=== PATIENT | male | born 1945 | race Caucasian/White ===

== ENCOUNTER 2022-04-22 11:51 | Observation (INO) | payer MEDICARE ==
[2022-04-22 12:29] LABS: Absolute Neutrophil Ct (ANC) 2.65 x10^3/uL (1.4-6.9); BASOPHIL % 1.1 % (0.0-0.4); Basophil (Absolute #) 0.05 x10^3/uL (0-0.4); Eosinophil % 2.9 % (0.00-5.0); Eosinophil (Absolute #) 0.13 x10^3/uL (0-0.5); Hematocrit 40.1 % (42-50); IMMATURE GRAN # 0.01 x10^3u/L (0.00-0.03); IMMATURE GRAN % 0.2 % (0.00-0.4); Lymphocyte (Absolute #) 1.09 x10^3/uL (1.0-4.6); Lymphocytes % 24.4 % (24.0-44.0); Mean Cell Volume 93.5 fL (78-100); Mean Corpuscular Hemoglobin 30.3 pg (26-32); Mean Corpuscular Hgb Concent. 32.4 g/dL (32-36); Mean Platelet Volume 10.7 fL (7.5-11.0); Monocyte (Absolute #) 0.53 x10^3/uL (0.0-1.3); Monocytes % 11.9 % (0.0-12.0); Neutrophil % 59.5 % (36.0-66.0); Platelet Count 188 x10^3/uL (150-450); Red Blood Count 4.29 x10^6/uL (4.1-5.6); Red Cell Distribution Width 13.9 % (11.5-14.0); White Blood Count 4.5 x10^3/uL (4.0-10.5)
--- NOTE | 2022-04-22 12:41 | ERPHSYRPT ---
- History of Present Illness Source: patient, other () Exam Limitations: other (Both poor historians) Patient Subjective Stated Complaint: pt here for increase confusion today that started at about 1100 at [employer], states he ate a peice of paper. pt has hx of dementia. Triage Nursing Assessment: pt alert,pt oriented to person,place and time . resp easy. skin w/d/p. 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 Pt states that the bleeding is bright red and denies melena/diarrhea. He is on Eliquis for his "heart". N/V/cough/coryza/chest pain/dyspnea are all denied. states that pt is more confused today, but he has a h/o dementia and is currently taking Aricept and Namenda. He does have a R facial droop which states is chronic. No other focal weakness noted. Timing/Duration: yesterday Severity: mild Modifying Factors: Improves With: nothing Allergies/Adverse Reactions: No Known Drug Allergies Allergy (Unverified 04/22/22 12:02) Hx Tetanus, Diphtheria Vaccination/Date Given: No Hx Influenza Vaccination/Date Given: Yes Hx Pneumococcal Vaccination/Date Given: Yes Immunizations Up to Date: Yes Travel Risk - International Travel Have you traveled outside of the country in past 3 weeks: No - Coronavirus Screening Are you exhibiting any of the following symptoms?: No Close contact with a COVID-19 positive Pt in past 14-21 Days: No - Vaccine Status Have you recieved a Covid-19 vaccination: No 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 - Review of Systems Constitutional: No Symptoms Eyes: No Symptoms Ears, Nose, & Throat: No Symptoms Respiratory: No Symptoms Cardiac: No Symptoms Abdominal/Gastrointestinal: No Symptoms, Hematochezia Genitourinary Symptoms: No Symptoms Musculoskeletal: No Symptoms Skin: No Symptoms Neurological: No Symptoms Psychological: No Symptoms, Memory Loss Endocrine: No Symptoms Hematologic/Lymphatic: No Symptoms Immunological/Allergic: No Symptoms - Past Medical History Pertinent Past Medical History: Yes Cardiac History: Hypertension, Myocardial Infarction (NM) Endocrine Medical History: Diabetes Type II - Past Surgical History Past Surgical History: Yes - Social History Smoking Status: Former smoker Exposure to second hand smoke: No Drug Use: none Patient Lives Alone: No - Nursing Vital Signs Nursing Vital Signs: Initial Vital Signs Pulse Rate 63 04/22/22 12:07 Respiratory Rate 16 04/22/22 12:07 Blood Pressure 138/70 04/22/22 12:07 O2 Sat by Pulse Oximetry 98 04/22/22 12:07 Pain Scale Pain Intensity 0 WNL - Physical Exam General Appearance: no apparent distress Eye Exam: PERRL/EOMI, eyes nml inspection Ears, Nose, Throat Exam: normal ENT inspection, TMs normal, pharynx normal, moist mucous membranes Neck Exam: normal inspection, non-tender, supple, full range of motion, No meningismus, No mass, No Brudzinski, No Kernig's, No carotid bruit Respiratory Exam: normal breath sounds, lungs clear, airway intact Cardiovascular Exam: regular rate/rhythm, normal heart sounds, normal peripheral pulses, capillary refill <2 sec, No murmur Gastrointestinal/Abdomen Exam: soft, normal bowel sounds, No tenderness Rectal Exam: other (Blood on rectal exam) Back Exam: normal inspection, normal range of motion, No CVA tenderness Extremity Exam: normal inspection, normal range of motion Neurologic Exam: alert, oriented x 3, cooperative, sensation nml, other (Chronic R facial droop), No motor deficits Skin Exam: normal color, warm, dry Lymphatic Exam: No adenopathy SpO2 Interpretation: normal SpO2: 98 O2 Delivery: Room Air - Course Nursing assessment & vital signs reviewed: Yes EKG Interpreted by Me: RATE (NSR/rate 60/Normal QT-QTc/Tall Rwave V2/Non- specific Twave abnormality) - CT Exams Head CT Interpretation: Tele-radiologist Report (Nothing acute) Ordered Tests: Active Orders 24 hr Category Date Time Status HEAD WITHOUT CONTRAST [CT] Stat Exams 04/22/22 12:15 Taken CBC W DIFF Stat Lab 04/22/22 12:03 Completed CMP Stat Lab 04/22/22 12:10 Completed Lactic Acid Stat Lab 04/22/22 12:45 Completed POCT GLUCOSE Stat Lab 04/22/22 12:04 Completed PROTIME WITH INR Stat Lab 04/22/22 12:10 Completed PTT Stat Lab 04/22/22 12:10 Completed TROPONIN Q4H Lab 04/22/22 12:10 Completed TROPONIN Q4H Lab 04/22/22 16:15 Ordered TROPONIN Q4H Lab 04/22/22 20:15 Ordered UA W/RFX UR CULTURE Stat Lab 04/22/22 12:53 Completed Lab/Rad Data: Laboratory Result Diagrams 04/22/22 12:03 04/22/22 12:10 Laboratory Results 04/22/22 04/22/22 04/22/22 Range/Units 12:53 12:45 12:10 WBC (4.0-10.5) x10^3/uL RBC (4.1-5.6) x10^6/uL Hgb (12.5-18.0) g/dL Hct (42-50) % MCV (78-100) fL MCH (26-32) pg MCHC (32-36) g/dL RDW (11.5-14.0) % Plt Count (150-450) x10^3/uL MPV (7.5-11.0) fL Gran % (36.0-66.0) % Immature Gran % (Auto) (0.00-0.4) % Nucleat RBC Rel Count (0.00-0.1) % Eos # (Auto) (0-0.5) x10^3/uL Immature Gran # (Auto) (0.00-0.03) x10^3u/L Absolute Lymphs (auto) (1.0-4.6) x10^3/uL Absolute Monos (auto) (0.0-1.3) x10^3/uL Absolute Nucleated RBC (0.00-0.01) x10^3u/L Lymphocytes % (24.0-44.0) % Monocytes % (0.0-12.0) % Eosinophils % (0.00-5.0) % Basophils % (0.0-0.4) % Absolute Granulocytes (1.4-6.9) x10^3/uL Basophils # (0-0.4) x10^3/uL PT (9.4-12.5) SECONDS INR (0.8-3.0) APTT (25.1-36.5) SECONDS Sodium (137-145) mmol/L Potassium (3.5-5.1) mmol/L Chloride (98-107) mmol/L Carbon Dioxide (22-30) mmol/L Anion Gap (5-15) MEQ/L BUN (9-20) mg/dL Creatinine (0.66-1.25) mg/dL Estimated GFR ML/MIN Glucose (74-106) mg/dL POC Glucometer (74 to 106) mg/dL Lactic Acid 2.2 H (0.4-2.0) Calcium (8.4-10.2) mg/dL Total Bilirubin (0.2-1.3) mg/dL AST (17-59) U/L ALT (0-50) U/L Alkaline Phosphatase (38-126) U/L Troponin I (0.000-0.034) ng/mL Serum Total Protein (6.3-8.2) g/dL Albumin (3.5-5.0) g/dL Urine Color Yellow (Yellow) Urine Appearance Clear (Clear) Urine pH 6.0 (4.6-8.0) Ur Specific [place] 1.015 (1.005-1.030) Urine Protein Negative (Negative) Urine Glucose (UA) Negative (Negative) mg/dL Urine Ketones Negative (Negative) Urine Blood Negative (Negative) Urine Nitrite Negative (Negative) Urine Bilirubin Negative (Negative) Urine Urobilinogen 1.0 A (0.2) mg/dL Ur Leukocyte Esterase Negative (Negative) U Hyaline Cast (Auto) NONE SEEN (0-2) /LPF Urine Microscopic RBC 0-2 (0-5) /HPF Urine Microscopic WBC 0-2 (0-5) /HPF Ur Epithelial Cells None Seen (None Seen) /HPF Urine Bacteria None Seen (None Seen) /HPF Urine Culture Reflexed NO (NO) Influenza Type A Ag NEGATIVE (NEGATIVE) Influenza Type B Ag NEGATIVE (NEGATIVE) RSV (PCR) NEGATIVE (Negative) SARS-CoV-2 (PCR) NEGATIVE (NEGATIVE) 04/22/22 04/22/22 04/22/22 Range/Units 12:10 12:10 12:10 WBC (4.0-10.5) x10^3/uL RBC (4.1-5.6) x10^6/uL Hgb (12.5-18.0) g/dL Hct (42-50) % MCV (78-100) fL MCH (26-32) pg MCHC (32-36) g/dL RDW (11.5-14.0) % Plt Count (150-450) x10^3/uL MPV (7.5-11.0) fL Gran % (36.0-66.0) % Immature Gran % (Auto) (0.00-0.4) % Nucleat RBC Rel Count (0.00-0.1) % Eos # (Auto) (0-0.5) x10^3/uL Immature Gran # (Auto) (0.00-0.03) x10^3u/L Absolute Lymphs (auto) (1.0-4.6) x10^3/uL Absolute Monos (auto) (0.0-1.3) x10^3/uL Absolute Nucleated RBC (0.00-0.01) x10^3u/L Lymphocytes % (24.0-44.0) % Monocytes % (0.0-12.0) % Eosinophils % (0.00-5.0) % Basophils % (0.0-0.4) % Absolute Granulocytes (1.4-6.9) x10^3/uL Basophils # (0-0.4) x10^3/uL PT 11.8 (9.4-12.5) SECONDS INR 1.13 (0.8-3.0) APTT 27.1 (25.1-36.5) SECONDS Sodium 138 (137-145) mmol/L Potassium 4.3 (3.5-5.1) mmol/L Chloride 99 (98-107) mmol/L Carbon Dioxide 31 H (22-30) mmol/L Anion Gap 12.6 (5-15) MEQ/L BUN 14 (9-20) mg/dL Creatinine 0.75 (0.66-1.25) mg/dL Estimated GFR > 60.0 ML/MIN Glucose 190 H (74-106) mg/dL POC Glucometer (74 to 106) mg/dL Lactic Acid (0.4-2.0) Calcium 9.0 (8.4-10.2) mg/dL Total Bilirubin 0.80 (0.2-1.3) mg/dL AST 27 (17-59) U/L ALT 25 (0-50) U/L Alkaline Phosphatase 117 (38-126) U/L Troponin I < 0.012 (0.000-0.034) ng/mL Serum Total Protein 6.9 (6.3-8.2) g/dL Albumin 4.5 (3.5-5.0) g/dL Urine Color (Yellow) Urine Appearance (Clear) Urine pH (4.6-8.0) Ur Specific [place] (1.005-1.030) Urine Protein (Negative) Urine Glucose (UA) (Negative) mg/dL Urine Ketones (Negative) Urine Blood (Negative) Urine Nitrite (Negative) Urine Bilirubin (Negative) Urine Urobilinogen (0.2) mg/dL Ur Leukocyte Esterase (Negative) U Hyaline Cast (Auto) (0-2) /LPF Urine Microscopic RBC (0-5) /HPF Urine Microscopic WBC (0-5) /HPF Ur Epithelial Cells (None Seen) /HPF Urine Bacteria (None Seen) /HPF Urine Culture Reflexed (NO) Influenza Type A Ag (NEGATIVE) Influenza Type B Ag (NEGATIVE) RSV (PCR) (Negative) SARS-CoV-2 (PCR) (NEGATIVE) 04/22/22 04/22/22 Range/Units 12:04 12:03 WBC 4.5 (4.0-10.5) x10^3/uL RBC 4.29 (4.1-5.6) x10^6/uL Hgb 13.0 (12.5-18.0) g/dL Hct 40.1 L (42-50) % MCV 93.5 (78-100) fL MCH 30.3 (26-32) pg MCHC 32.4 (32-36) g/dL RDW 13.9 (11.5-14.0) % Plt Count 188 (150-450) x10^3/uL MPV 10.7 (7.5-11.0) fL Gran % 59.5 (36.0-66.0) % Immature Gran % (Auto) 0.2 (0.00-0.4) % Nucleat RBC Rel Count 0.0 (0.00-0.1) % Eos # (Auto) 0.13 (0-0.5) x10^3/uL Immature Gran # (Auto) 0.01 (0.00-0.03) x10^3u/L Absolute Lymphs (auto) 1.09 (1.0-4.6) x10^3/uL Absolute Monos (auto) 0.53 (0.0-1.3) x10^3/uL Absolute Nucleated RBC 0.00 (0.00-0.01) x10^3u/L Lymphocytes % 24.4 (24.0-44.0) % Monocytes % 11.9 (0.0-12.0) % Eosinophils % 2.9 (0.00-5.0) % Basophils % 1.1 (0.0-0.4) % Absolute Granulocytes 2.65 (1.4-6.9) x10^3/uL Basophils # 0.05 (0-0.4) x10^3/uL PT (9.4-12.5) SECONDS INR (0.8-3.0) APTT (25.1-36.5) SECONDS Sodium (137-145) mmol/L Potassium (3.5-5.1) mmol/L Chloride (98-107) mmol/L Carbon Dioxide (22-30) mmol/L Anion Gap (5-15) MEQ/L BUN (9-20) mg/dL Creatinine (0.66-1.25) mg/dL Estimated GFR ML/MIN Glucose (74-106) mg/dL POC Glucometer 194 H (74 to 106) mg/dL Lactic Acid (0.4-2.0) Calcium (8.4-10.2) mg/dL Total Bilirubin (0.2-1.3) mg/dL AST (17-59) U/L ALT (0-50) U/L Alkaline Phosphatase (38-126) U/L Troponin I (0.000-0.034) ng/mL Serum Total Protein (6.3-8.2) g/dL Albumin (3.5-5.0) g/dL Urine Color (Yellow) Urine Appearance (Clear) Urine pH (4.6-8.0) Ur Specific [place] (1.005-1.030) Urine Protein (Negative) Urine Glucose (UA) (Negative) mg/dL Urine Ketones (Negative) Urine Blood (Negative) Urine Nitrite (Negative) Urine Bilirubin (Negative) Urine Urobilinogen (0.2) mg/dL Ur Leukocyte Esterase (Negative) U Hyaline Cast (Auto) (0-2) /LPF Urine Microscopic RBC (0-5) /HPF Urine Microscopic WBC (0-5) /HPF Ur Epithelial Cells (None Seen) /HPF Urine Bacteria (None Seen) /HPF Urine Culture Reflexed (NO) Influenza Type A Ag (NEGATIVE) Influenza Type B Ag (NEGATIVE) RSV (PCR) (Negative) SARS-CoV-2 (PCR) (NEGATIVE) - Progress Progress Note: 04/22/22 14:17 Nursing note and vital signs reviewed CT results and labs reviewed and shared w pt Dr. Matthews requested that pt be transferred to [facility]. Spoke w pt/, and they want to stay at [facility] to admit per Dr. Matthews Pt is a full code Pt is on Eliquis 04/22/22 14:25 Counseled pt/family regarding: lab results, diagnosis, rad results - Departure Departure Disposition: Observation Clinical Impression: GI (gastrointestinal bleed) Condition: Stable Critical Care Time: No Referrals: TIFFANIE HOPKINS [Primary Care Provider] - Follow up/PCP as directed
[2022-04-22 12:55] LABS: ALBUMIN 4.5 g/dL (3.5-5.0); ALKALINE PHOSPHATASE 117 U/L (38-126); ANION GAP 12.6 MEQ/L (5-15); BLOOD UREA NITROGEN 14 mg/dL (9-20); CHLORIDE 99 mmol/L (98-107); Carbon Dioxide 31 mmol/L (22-30); Creatinine 1 0.75 mg/dL (0.66-1.25); EST GLOMERULAR FILTRATION RATE > 60.0 ML/MIN; Glucose 190 mg/dL (74-106); Potassium 4.3 mmol/L (3.5-5.1); SGOT/AST 27 U/L (17-59); SGPT/ALT 25 U/L (0-50); SODIUM 138 mmol/L (137-145); Total Protein 6.9 g/dL (6.3-8.2)
[2022-04-22 13:06] LABS: Appearance Clear (Clear); Bacteria None Seen /HPF (None Seen); Bilirubin Negative (Negative); Blood Negative (Negative); Epithelial Cells None Seen /HPF (None Seen); Glucose, Urine Negative (Negative); Hyaline Casts NONE SEEN /LPF (0-2); Ketones Negative (Negative); Leukocyte Esterase Negative (Negative); Nitrite Negative (Negative); Protein,Urine Dip Negative (Negative); RBC 0-2 /HPF (0-5); Specific Gravity 1.015 (1.005-1.030); WBC 0-2 /HPF (0-5)
[2022-04-22 13:15] LABS: INFLUENZA A NEGATIVE (NEGATIVE); INFLUENZA B NEGATIVE (NEGATIVE); RESPIRATORY SYNCTIAL VIRUS NEGATIVE (Negative); SARS-CoV-2 Xpert Express NEGATIVE (NEGATIVE)
[2022-04-22 13:22] LABS: ADD URINE CULTURE? NO (NO)
[2022-04-22 13:24] LABS: INR 1.13 (0.8-3.0); PROTIME 11.8 SECONDS (9.4-12.5); PTT 27.1 SECONDS (25.1-36.5)
[2022-04-22] MEDS ORDERED: Sodium Chloride 0.9% 1000 ML 1,000 ML IV SCH (15:25)
--- NOTE | 2022-04-22 17:19 | PCM.HP ---
History of Present Illness - Chief Complaint Chief Complaint: GI bleed History of Present Illness: is a 76 year old male [facility] who [facility] to ER with C/O passing alot of blood seen in the toilet yesterday and some today.Patient is on Eliquis and Plavix since cardiac stents 2019,followed by Dr Zambrano at [facility]. Hx Hemorrhoid surgery by Dr Grajeda in the past . Medications & Allergies Home Medications: Home Medication List Allopurinol 100 mg [Zyloprim 100 mg] 100 mg PO HS 04/22/22 [History Confirmed 04/22/22] Allopurinol 300 mg [Zyloprim 300 mg] 150 mg PO DAILY 04/22/22 [History Con firmed 04/22/22] Apixaban [Eliquis 5 mg Tablet] 5 mg PO BID 04/22/22 [History Confirmed 04/22/22] Ascorbic Acid [Vitamin C] 1,000 mg PO DAILY 04/22/22 [History Confirmed 04/22/22] Atorvastatin Calcium 40 mg PO HS 04/22/22 [History Confirmed 04/22/22] Cetirizine HCl [Zyrtec] 10 mg PO DAILY 04/22/22 [History Confirmed 04/22/22] Clopidogrel Bisulfate [PLAVIX Tablet] 75 mg PO DAILY 04/22/22 [History Confirmed 04/22/22] Docusate Sodium 100 mg [Docusate Sodium 100 MG] 100 mg PO HS 04/22/22 [History Confirmed 04/22/22] Donepezil HCl 10 mg [Aricept 10 MG] 20 mg PO HS 04/22/22 [History Confirmed 04/22/22] Duloxetine HCl 30 mg [Cymbalta 30 MG Capsule] 30 mg PO BID 04/22/22 [History Confirmed 04/22/22] Finasteride [Proscar] 5 mg PO HS 04/22/22 [History Confirmed 04/22/22] Losartan Potassium 100 mg PO HS 04/22/22 [History Confirmed 04/22/22] Memantine HCl 10 mg PO HS 04/22/22 [History Confirmed 04/22/22] Metformin HCl 500 mg [Glucophage 500 MG] 1,000 mg PO BIDWM 04/22/22 [History Confirmed 04/22/22] Metoprolol Succinate 50 mg [Toprol Xl 50 MG] 50 mg PO BID 04/22/22 [History Confirmed 04/22/22] Multivit-Min/FA/Lycopen/Lutein [Centrum Silver Men Tablet] 1 each PO DAILY 04/22/22 [History Confirmed 04/22/22] Garrison-3 Fatty Acids/Fish Oil [Fish Oil 1,000 mg Capsule] 1,000 mg PO DAILY 04/22/22 [History Confirmed 04/22/22] Vit A/Vit C/Vit E/Zinc/Copper [Preservision Areds Softgel] 1 each PO BID 04/22/22 [History Confirmed 04/22/22] Allergies/Adverse Reactions: Allergies Allergy/AdvReac Type Severity Reaction Status Date / Time No Known Drug Allergies Allergy Unverified 04/22/22 12:02 - Past Medical History Past Medical History: Yes Neurological History: No Pertinent History ENT History: No Pertinent History Cardiac History: Hypertension, Myocardial Infarction (ME) Respiratory History: No Pertinent History Endocrine Medical History: Diabetes Type II Musculoskelatal History: No Pertinent History GI Medical History: GI Bleed History: No Pertinent History Pyscho-Social History: Depression Male Reproductive Disorders: Prostate Problems - Past Surgical History Past Surgical History: Yes Neuro Surgical History: No Pertinent History Cardiac History: No Pertinent History Respiratory Surgery: No Pertinent History GI Surgical History: No Pertinent History Genitourinary Surgical Hx: No Pertinent History Musculskeletal Surgical Hx: No Pertinent History Male Surgical History: No Pertinent History - Social History Smoking Status: Former smoker Exposure to second hand smoke: No Alcohol: None Drug Use: none - Physical Exam Vital Signs: Vital Signs - 24 hr Temp Pulse Resp BP Pulse Ox 04/22/22 15:23 97.3 F 60 19 158/79 97 04/22/22 15:00 77 18 98 04/22/22 14:25 98 04/22/22 12:07 63 16 138/70 98 Results - Labs Lab/Micro Results: Lab Results-Last 24 Hours 04/22/22 04/22/22 04/22/22 Range/Units 12:03 12:04 12:10 WBC 4.5 (4.0-10.5) x10^3/uL RBC 4.29 (4.1-5.6) x10^6/uL Hgb 13.0 (12.5-18.0) g/dL Hct 40.1 L (42-50) % MCV 93.5 (78-100) fL MCH 30.3 (26-32) pg MCHC 32.4 (32-36) g/dL RDW 13.9 (11.5-14.0) % Plt Count 188 (150-450) x10^3/uL MPV 10.7 (7.5-11.0) fL Gran % 59.5 (36.0-66.0) % Immature Gran % (Auto) 0.2 (0.00-0.4) % Nucleat RBC Rel Count 0.0 (0.00-0.1) % Eos # (Auto) 0.13 (0-0.5) x10^3/uL Immature Gran # (Auto) 0.01 (0.00-0.03) x10^3u/L Absolute Lymphs (auto) 1.09 (1.0-4.6) x10^3/uL Absolute Monos (auto) 0.53 (0.0-1.3) x10^3/uL Absolute Nucleated RBC 0.00 (0.00-0.01) x10^3u/L Lymphocytes % 24.4 (24.0-44.0) % Monocytes % 11.9 (0.0-12.0) % Eosinophils % 2.9 (0.00-5.0) % Basophils % 1.1 (0.0-0.4) % Absolute Granulocytes 2.65 (1.4-6.9) x10^3/uL Basophils # 0.05 (0-0.4) x10^3/uL PT (9.4-12.5) SECONDS INR (0.8-3.0) APTT (25.1-36.5) SECONDS Sodium 138 (137-145) mmol/L Potassium 4.3 (3.5-5.1) mmol/L Chloride 99 (98-107) mmol/L Carbon Dioxide 31 H (22-30) mmol/L Anion Gap 12.6 (5-15) MEQ/L BUN 14 (9-20) mg/dL Creatinine 0.75 (0.66-1.25) mg/dL Estimated GFR > 60.0 ML/MIN Glucose 190 H (74-106) mg/dL POC Glucometer 194 H (74 to 106) mg/dL Lactic Acid (0.4-2.0) Calcium 9.0 (8.4-10.2) mg/dL Total Bilirubin 0.80 (0.2-1.3) mg/dL AST 27 (17-59) U/L ALT 25 (0-50) U/L Alkaline Phosphatase 117 (38-126) U/L Troponin I (0.000-0.034) ng/mL Serum Total Protein 6.9 (6.3-8.2) g/dL Albumin 4.5 (3.5-5.0) g/dL Urine Color (Yellow) Urine Appearance (Clear) Urine pH (4.6-8.0) Ur Specific [place] (1.005-1.030) Urine Protein (Negative) Urine Glucose (UA) (Negative) mg/dL Urine Ketones (Negative) Urine Blood (Negative) Urine Nitrite (Negative) Urine Bilirubin (Negative) Urine Urobilinogen (0.2) mg/dL Ur Leukocyte Esterase (Negative) U Hyaline Cast (Auto) (0-2) /LPF Urine Microscopic RBC (0-5) /HPF Urine Microscopic WBC (0-5) /HPF Ur Epithelial Cells (None Seen) /HPF Urine Bacteria (None Seen) /HPF Urine Culture Reflexed (NO) Influenza Type A Ag (NEGATIVE) Influenza Type B Ag (NEGATIVE) RSV (PCR) (Negative) SARS-CoV-2 (PCR) (NEGATIVE) 04/22/22 04/22/22 04/22/22 Range/Units 12:10 12:10 12:10 WBC (4.0-10.5) x10^3/uL RBC (4.1-5.6) x10^6/uL Hgb (12.5-18.0) g/dL Hct (42-50) % MCV (78-100) fL MCH (26-32) pg MCHC (32-36) g/dL RDW (11.5-14.0) % Plt Count (150-450) x10^3/uL MPV (7.5-11.0) fL Gran % (36.0-66.0) % Immature Gran % (Auto) (0.00-0.4) % Nucleat RBC Rel Count (0.00-0.1) % Eos # (Auto) (0-0.5) x10^3/uL Immature Gran # (Auto) (0.00-0.03) x10^3u/L Absolute Lymphs (auto) (1.0-4.6) x10^3/uL Absolute Monos (auto) (0.0-1.3) x10^3/uL Absolute Nucleated RBC (0.00-0.01) x10^3u/L Lymphocytes % (24.0-44.0) % Monocytes % (0.0-12.0) % Eosinophils % (0.00-5.0) % Basophils % (0.0-0.4) % Absolute Granulocytes (1.4-6.9) x10^3/uL Basophils # (0-0.4) x10^3/uL PT 11.8 (9.4-12.5) SECONDS INR 1.13 (0.8-3.0) APTT 27.1 (25.1-36.5) SECONDS Sodium (137-145) mmol/L Potassium (3.5-5.1) mmol/L Chloride (98-107) mmol/L Carbon Dioxide (22-30) mmol/L Anion Gap (5-15) MEQ/L BUN (9-20) mg/dL Creatinine (0.66-1.25) mg/dL Estimated GFR ML/MIN Glucose (74-106) mg/dL POC Glucometer (74 to 106) mg/dL Lactic Acid (0.4-2.0) Calcium (8.4-10.2) mg/dL Total Bilirubin (0.2-1.3) mg/dL AST (17-59) U/L ALT (0-50) U/L Alkaline Phosphatase (38-126) U/L Troponin I < 0.012 (0.000-0.034) ng/mL Serum Total Protein (6.3-8.2) g/dL Albumin (3.5-5.0) g/dL Urine Color (Yellow) Urine Appearance (Clear) Urine pH (4.6-8.0) Ur Specific [place] (1.005-1.030) Urine Protein (Negative) Urine Glucose (UA) (Negative) mg/dL Urine Ketones (Negative) Urine Blood (Negative) Urine Nitrite (Negative) Urine Bilirubin (Negative) Urine Urobilinogen (0.2) mg/dL Ur Leukocyte Esterase (Negative) U Hyaline Cast (Auto) (0-2) /LPF Urine Microscopic RBC (0-5) /HPF Urine Microscopic WBC (0-5) /HPF Ur Epithelial Cells (None Seen) /HPF Urine Bacteria (None Seen) /HPF Urine Culture Reflexed (NO) Influenza Type A Ag NEGATIVE (NEGATIVE) Influenza Type B Ag NEGATIVE (NEGATIVE) RSV (PCR) NEGATIVE (Negative) SARS-CoV-2 (PCR) NEGATIVE (NEGATIVE) 04/22/22 04/22/22 04/22/22 Range/Units 12:45 12:53 15:08 WBC (4.0-10.5) x10^3/uL RBC (4.1-5.6) x10^6/uL Hgb (12.5-18.0) g/dL Hct (42-50) % MCV (78-100) fL MCH (26-32) pg MCHC (32-36) g/dL RDW (11.5-14.0) % Plt Count (150-450) x10^3/uL MPV (7.5-11.0) fL Gran % (36.0-66.0) % Immature Gran % (Auto) (0.00-0.4) % Nucleat RBC Rel Count (0.00-0.1) % Eos # (Auto) (0-0.5) x10^3/uL Immature Gran # (Auto) (0.00-0.03) x10^3u/L Absolute Lymphs (auto) (1.0-4.6) x10^3/uL Absolute Monos (auto) (0.0-1.3) x10^3/uL Absolute Nucleated RBC (0.00-0.01) x10^3u/L Lymphocytes % (24.0-44.0) % Monocytes % (0.0-12.0) % Eosinophils % (0.00-5.0) % Basophils % (0.0-0.4) % Absolute Granulocytes (1.4-6.9) x10^3/uL Basophils # (0-0.4) x10^3/uL PT (9.4-12.5) SECONDS INR (0.8-3.0) APTT (25.1-36.5) SECONDS Sodium (137-145) mmol/L Potassium (3.5-5.1) mmol/L Chloride (98-107) mmol/L Carbon Dioxide (22-30) mmol/L Anion Gap (5-15) MEQ/L BUN (9-20) mg/dL Creatinine (0.66-1.25) mg/dL Estimated GFR ML/MIN Glucose (74-106) mg/dL POC Glucometer (74 to 106) mg/dL Lactic Acid 2.2 H 1.6 (0.4-2.0) Calcium (8.4-10.2) mg/dL Total Bilirubin (0.2-1.3) mg/dL AST (17-59) U/L ALT (0-50) U/L Alkaline Phosphatase (38-126) U/L Troponin I (0.000-0.034) ng/mL Serum Total Protein (6.3-8.2) g/dL Albumin (3.5-5.0) g/dL Urine Color Yellow (Yellow) Urine Appearance Clear (Clear) Urine pH 6.0 (4.6-8.0) Ur Specific [place] 1.015 (1.005-1.030) Urine Protein Negative (Negative) Urine Glucose (UA) Negative (Negative) mg/dL Urine Ketones Negative (Negative) Urine Blood Negative (Negative) Urine Nitrite Negative (Negative) Urine Bilirubin Negative (Negative) Urine Urobilinogen 1.0 A (0.2) mg/dL Ur Leukocyte Esterase Negative (Negative) U Hyaline Cast (Auto) NONE SEEN (0-2) /LPF Urine Microscopic RBC 0-2 (0-5) /HPF Urine Microscopic WBC 0-2 (0-5) /HPF Ur Epithelial Cells None Seen (None Seen) /HPF Urine Bacteria None Seen (None Seen) /HPF Urine Culture Reflexed NO (NO) Influenza Type A Ag (NEGATIVE) Influenza Type B Ag (NEGATIVE) RSV (PCR) (Negative) SARS-CoV-2 (PCR) (NEGATIVE) 04/22/22 04/22/22 Range/Units 15:41 16:00 WBC (4.0-10.5) x10^3/uL RBC (4.1-5.6) x10^6/uL Hgb (12.5-18.0) g/dL Hct (42-50) % MCV (78-100) fL MCH (26-32) pg MCHC (32-36) g/dL RDW (11.5-14.0) % Plt Count (150-450) x10^3/uL MPV (7.5-11.0) fL Gran % (36.0-66.0) % Immature Gran % (Auto) (0.00-0.4) % Nucleat RBC Rel Count (0.00-0.1) % Eos # (Auto) (0-0.5) x10^3/uL Immature Gran # (Auto) (0.00-0.03) x10^3u/L Absolute Lymphs (auto) (1.0-4.6) x10^3/uL Absolute Monos (auto) (0.0-1.3) x10^3/uL Absolute Nucleated RBC (0.00-0.01) x10^3u/L Lymphocytes % (24.0-44.0) % Monocytes % (0.0-12.0) % Eosinophils % (0.00-5.0) % Basophils % (0.0-0.4) % Absolute Granulocytes (1.4-6.9) x10^3/uL Basophils # (0-0.4) x10^3/uL PT (9.4-12.5) SECONDS INR (0.8-3.0) APTT (25.1-36.5) SECONDS Sodium (137-145) mmol/L Potassium (3.5-5.1) mmol/L Chloride (98-107) mmol/L Carbon Dioxide (22-30) mmol/L Anion Gap (5-15) MEQ/L BUN (9-20) mg/dL Creatinine (0.66-1.25) mg/dL Estimated GFR ML/MIN Glucose (74-106) mg/dL POC Glucometer 110 H (74 to 106) mg/dL Lactic Acid (0.4-2.0) Calcium (8.4-10.2) mg/dL Total Bilirubin (0.2-1.3) mg/dL AST (17-59) U/L ALT (0-50) U/L Alkaline Phosphatase (38-126) U/L Troponin I < 0.012 (0.000-0.034) ng/mL Serum Total Protein (6.3-8.2) g/dL Albumin (3.5-5.0) g/dL Urine Color (Yellow) Urine Appearance (Clear) Urine pH (4.6-8.0) Ur Specific [place] (1.005-1.030) Urine Protein (Negative) Urine Glucose (UA) (Negative) mg/dL Urine Ketones (Negative) Urine Blood (Negative) Urine Nitrite (Negative) Urine Bilirubin (Negative) Urine Urobilinogen (0.2) mg/dL Ur Leukocyte Esterase (Negative) U Hyaline Cast (Auto) (0-2) /LPF Urine Microscopic RBC (0-5) /HPF Urine Microscopic WBC (0-5) /HPF Ur Epithelial Cells (None Seen) /HPF Urine Bacteria (None Seen) /HPF Urine Culture Reflexed (NO) Influenza Type A Ag (NEGATIVE) Influenza Type B Ag (NEGATIVE) RSV (PCR) (Negative) SARS-CoV-2 (PCR) (NEGATIVE) - Radiology Impressions Radiology Exams & Impressions: Radiology Procedures Category Date Time Status HEAD WITHOUT CONTRAST [CT] Stat Exams 04/22/22 12:15 Taken Assessment/Plan (1) Hematochezia Current Visit: Yes Status: Acute Code(s): K92.1 - [facility] (2) History of hemorrhoidectomy Current Visit: Yes Status: Chronic Code(s): Z98.890 - OTHER SPECIFIED POSTPROCEDURAL STATES (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
--- NOTE | 2022-04-22 19:22 | XRAY ---
Indication: Frequent falls 2 months. Stroke. Multiple contiguous axial images obtained through the head without contrast. Comparison: None Age-appropriate global atrophy and mild periventricular degenerative micro-ischemia bilaterally. No acute intracranial hemorrhage, abnormal extra-axial fluid collection, or mass effect. Fourth ventricle is midline without hydrocephalus. Bony calvarium intact. Incidental old anterior right zygomatic arch fracture. Visualized paranasal sinuses and mastoid air cells are clear. Impression: Nonacute senile brain. Comment: Preliminary interpretation made by [facility]. No critical discrepancy.
[2022-04-22] MEDS ORDERED: Cozaar 50 MG PO ONE (22:00)
[2022-04-22] MEDS ORDERED: ZOCOR 20MG PO ONE (22:00)
[2022-04-22] MEDS ORDERED: Aricept 10 MG PO ONE (22:00)
[2022-04-22] MEDS ORDERED: Cymbalta 30 MG Capsule PO ONE (22:00)
[2022-04-22] MEDS ORDERED: ZYLOPRIM 100 MG PO ONE (22:00)
[2022-04-22] MEDS ORDERED: Namenda 5 MG PO ONE (22:00)
[2022-04-22] MEDS ORDERED: Proscar 5 MG PO ONE (22:00)
[2022-04-22] MEDS ORDERED: LIPITOR 40MG PO ONE (22:00)
[2022-04-22] MEDS ORDERED: Toprol Xl 50 MG PO ONE (22:00)
[2022-04-22] MEDS ORDERED: Requip 0.5 MG PO SCH (23:08)
[2022-04-23 04:59] LABS: Absolute Neutrophil Ct (ANC) 3.48 x10^3/uL (1.4-6.9); BASOPHIL % 0.5 % (0.0-0.4); Basophil (Absolute #) 0.03 x10^3/uL (0-0.4); Eosinophil % 2.6 % (0.00-5.0); Eosinophil (Absolute #) 0.14 x10^3/uL (0-0.5); Hemoglobin 13.6 g/dL (12.5-18.0); IMMATURE GRAN # 0.01 x10^3u/L (0.00-0.03); IMMATURE GRAN % 0.2 % (0.00-0.4); Lymphocyte (Absolute #) 1.12 x10^3/uL (1.0-4.6); Lymphocytes % 20.5 % (24.0-44.0); Mean Cell Volume 91.5 fL (78-100); Mean Corpuscular Hemoglobin 30.4 pg (26-32); Mean Corpuscular Hgb Concent. 33.2 g/dL (32-36); Mean Platelet Volume 10.2 fL (7.5-11.0); Monocyte (Absolute #) 0.68 x10^3/uL (0.0-1.3); Monocytes % 12.5 % (0.0-12.0); Neutrophil % 63.7 % (36.0-66.0); Platelet Count 183 x10^3/uL (150-450); Red Blood Count 4.48 x10^6/uL (4.1-5.6); Red Cell Distribution Width 13.7 % (11.5-14.0); White Blood Count 5.5 x10^3/uL (4.0-10.5)
[2022-04-23 06:16] LABS: ALBUMIN 4.3 g/dL (3.5-5.0); ALKALINE PHOSPHATASE 101 U/L (38-126); ANION GAP 12.4 MEQ/L (5-15); BLOOD UREA NITROGEN 12 mg/dL (9-20); CHLORIDE 104 mmol/L (98-107); Calcium 9.1 mg/dL (8.4-10.2); Carbon Dioxide 29 mmol/L (22-30); Creatinine 1 0.73 mg/dL (0.66-1.25); EST GLOMERULAR FILTRATION RATE > 60.0 ML/MIN; Glucose 140 mg/dL (74-106); Potassium 4.7 mmol/L (3.5-5.1); SGOT/AST 28 U/L (17-59); SGPT/ALT 25 U/L (0-50); SODIUM 140 mmol/L (137-145); Total Protein 6.7 g/dL (6.3-8.2)
[2022-04-23] MEDS ORDERED: Docusate Sodium 100 MG PO PRN (07:28)
[2022-04-23] MEDS: Glucophage 500 MG PO SCH ×2 (08:03→17:38)
[2022-04-23] MEDS: Glucotrol 5 MG PO SCH ×2 (08:03→17:38)
[2022-04-23] MEDS ORDERED: Miralax Powder 17GM PACKET PO SCH (10:00)
[2022-04-23] MEDS ORDERED: NON-FORMULARY ITEM (Cetirizine Hcl [Zyrtec] 10 MG Capsule) PO SCH (10:00)
[2022-04-23] MEDS ORDERED: Toprol Xl 50 MG PO SCH (10:00)
[2022-04-23] MEDS ORDERED: Cymbalta 30 MG Capsule PO SCH (10:00)
[2022-04-23] MEDS ORDERED: CLARITIN 10 MG PO SCH (10:00)
[2022-04-23] MEDS ORDERED: THERAGRAN MULTIVITAMIN PO SCH (10:00)
[2022-04-23] MEDS ORDERED: Vitamin C 500 MG PO SCH (10:00)
[2022-04-23] MEDS ORDERED: [UNRECOGNIZED DRUG - MIXTURE] PO SCH (10:00)
[2022-04-23] MEDS ORDERED: ZYLOPRIM 300 MG PO SCH (10:00)
[2022-04-23] MEDS ORDERED: NON-FORMULARY ITEM (Vit A/Vit C/Vit E/Zinc/Copper [Preservision Areds Softgel] 1 EACH Caps PO SCH (10:00)
[2022-04-23] MEDS ORDERED: NON-FORMULARY ITEM (Ascorbic Acid [Vitamin C] 1,000 MG Tablet) PO SCH (10:00)
[2022-04-23] MEDS ORDERED: Metamucil PACKET PO SCH (10:00)
[2022-04-23] MEDS ORDERED: Ocuvite Tablet PO SCH (10:00)
[2022-04-23] MEDS ORDERED: ANUSOL-HC 2.5% CREAM 30 GM TP SCH (10:00)
--- NOTE | 2022-04-23 10:14 | XRAY ---
Indication: Rectal bleeding. Multiple contiguous axial images obtained through the abdomen and pelvis without contrast. Comparison: None Study is slightly degraded by respiration artifact and beam artifact from left total hip arthroplasty. Lung bases clear. Heart not enlarged. Stomach distended with food/fluid. Noncontrasted stomach and bowel loops appear nonobstructed with normal appendix. Moderate diffuse scattered colonic fecal debris throughout and diffuse scattered colonic diverticulosis without diverticulitis. No free fluid/air. Gallbladder contracted without obvious gallstones. Remaining liver, gallbladder, pancreas, spleen, adrenal glands, kidneys, ureters, and bladder are unremarkable for noncontrast exam. Mild scattered aortoiliac calcifications without AAA. Osseous structures intact with osteopenia, moderate/advanced multilevel degenerative spondylosis, moderate levorotoscoliosis centered at L2-L3, and moderate/advanced right hip degenerative arthropathy. Impression: 1. Respiration artifact and left total hip beam artifact. 2. Moderate diffuse fecal stasis and colonic diverticulosis. 3. Chronic findings including arteriosclerotic disease and chronic bony findings. 4. Remaining CT abdomen/pelvis without contrast exam is negative.
[2022-04-23 14:44] VITALS: PULSE 68
--- NOTE | 2022-04-23 14:46 | XRAY ---
Indication: Forehead injury following fall. Multiple contiguous axial images obtained through the head without contrast. Comparison: 1 day earlier Stable age-appropriate global atrophy and mild periventricular degenerative micro-ischemia. Again no acute intracranial hemorrhage, abnormal extra-axial fluid collection, or mass effect. Fourth ventricle is midline without hydrocephalus. Bony calvarium intact. Visualized paranasal sinuses and mastoid air cells are clear. Impression: Continue nonacute senile brain compared to CT one day earlier.
[2022-04-23 16:36] VITALS: BP 144/79; O2SAT 95
[2022-04-23] MEDS ORDERED: Cozaar 50 MG PO SCH (22:00)
[2022-04-23] MEDS ORDERED: ZYLOPRIM 100 MG PO SCH (22:00)
[2022-04-23] MEDS ORDERED: LIPITOR 40MG PO SCH (22:00)
[2022-04-23] MEDS ORDERED: ZOCOR 20MG PO SCH (22:00)
[2022-04-23] MEDS ORDERED: NON-FORMULARY ITEM (Memantine Hcl [Memantine Hcl] 10 MG Tablet) PO SCH (22:00)
[2022-04-23] MEDS ORDERED: Namenda 5 MG PO SCH (22:00)
[2022-04-23] MEDS ORDERED: NON-FORMULARY ITEM (Losartan Potassium [Losartan Potassium] 100 MG Tablet) PO SCH (22:00)
[2022-04-23] MEDS ORDERED: Aricept 10 MG PO SCH (22:00)
[2022-04-23] MEDS ORDERED: Proscar 5 MG PO SCH (22:00)
--- NOTE | 2022-04-24 09:29 | CONS ---
CONSULT DATE: 04/23/2022 HISTORY: This patient is seen for Dr. Ventura who was release of information clerk for group. The patient apparently was admitted yesterday. A 76-year-old admitted with atrial fibrillation. He is on Eliquis and Plavix. White count was 4.5, hemoglobin 13 on admission. Per nursing staff her hemoglobin was 13 today. He did not have any visible blood in the bowel movement he had earlier today. He has not had any significant bloody stools currently. PAST MEDICAL HISTORY: He has history of gout. He had some history of diabetes type II, history of myocardial infarction, hypertension in the past, depression, prostate problems. PAST SURGICAL HISTORY: Colonoscopy. Coronary stents. HOME MEDICATIONS: Allopurinol, apixaban, vitamin C, atorvastatin, Zyrtec, Plavix, docusate sodium, glipizide, duloxetine, Proscar, losartan, metformin, memantine, metoprolol, omega-3 fatty acid, multivitamin/fish oil/lycopene/lutein, vitamin E, vitamin C, PreserVision soft gel. ALLERGIES: NKDA. FAMILY HISTORY: Negative in regards to this problem. SOCIAL HISTORY: Former smoker. No alcohol abuse. REVIEW OF SYSTEMS: Fourteen systems reviewed negative or noncontributory as above and per preadmission questionnaire. PHYSICAL EXAMINATION: GENERAL: No acute distress. HEENT: Wears glasses. Sclera nonicteric. NECK: No JVD. CHEST: Equal excursion, nonlabored breathing. CVS: Regular rate and rhythm. ABDOMEN: Soft, nontender, nondistended. EXTREMITIES: No cyanosis. NEURO: Alert. PSYCH: Appropriate mood and affect. RECTAL: He does not have prolapsing hemorrhoids or thrombosed external hemorrhoids. The patient had limited lighting in the patient's room. The patient did have constipation prior to this episode. IMPRESSION: History of some rectal bleeding. He has had some hemorrhoid issues in the past. He had some constipation. Likely developed his bleeding being on both Plavix and Eliquis recently which was held. He denied significant bleeding here. He was stable. No acute surgical intervention necessary at this point. If his doctor feels he can be released he can follow up in the office for consideration of outpatient elective colonoscopy to be decided at that time, hemorrhoid banding or other intervention. At this time he is not having any prolapse. He is not having any external hemorrhoids. No acute surgical intervention necessary. Again, this patient was seen for Dr. Ventura who was release of information clerk for our group. The patient can follow up with Dr. Ventura or myself as an outpatient. If there is any recurrent bleeding will consider endoscopy. Again, he does not need emergent surgical intervention at this time.
== END 2022-04-23 17:55 | disposition home or self-care (01) ==
LOC: ED 11:51 → MED SURG 15:20
PROVIDERS: ADMIT Family Medicine; ATTEND Family Medicine
DX: K92.1 Melena (principal); E11.9 Type 2 diabetes mellitus without complications; F03.90 Unspecified dementia, unspecified severity, without behavioral disturbance, psychotic disturbance, mood disturbance, and anxiety; I10 Essential (primary) hypertension; Z79.01 Long term (current) use of anticoagulants; Z79.899 Other long term (current) drug therapy; Z20.828 Contact with and (suspected) exposure to other viral communicable diseases; Z95.1 Presence of aortocoronary bypass graft
CPT/HCPCS: 0241U; 36000; 36415; 70450; 74176; 80053; 81001; 82947; 83036; 83605; 84443; 84484; 85025; 85610; 85730; 94660; 99284; G0328; 82274; 93268; A9270-GY; G0378

== ENCOUNTER 2023-02-24 21:26 | Emergency (ER) | payer MEDICARE ==
[2023-02-24 22:03] LABS: Absolute Neutrophil Ct (ANC) 2.61 x10^3/uL (1.4-6.9); BASOPHIL % 0.8 % (0.0-0.4); Basophil (Absolute #) 0.04 x10^3/uL (0-0.4); Eosinophil % 3.3 % (0.00-5.0); Eosinophil (Absolute #) 0.16 x10^3/uL (0-0.5); Hemoglobin 13.9 g/dL (12.5-18.0); IMMATURE GRAN # 0.01 x10^3u/L (0.00-0.03); IMMATURE GRAN % 0.2 % (0.00-0.4); Lymphocyte (Absolute #) 1.54 x10^3/uL (1.0-4.6); Lymphocytes % 31.5 % (24.0-44.0); Mean Cell Volume 94.8 fL (78-100); Mean Corpuscular Hemoglobin 31.4 pg (26-32); Mean Corpuscular Hgb Concent. 33.1 g/dL (32-36); Mean Platelet Volume 10.2 fL (7.5-11.0); Monocyte (Absolute #) 0.53 x10^3/uL (0.0-1.3); Monocytes % 10.8 % (0.0-12.0); Neutrophil % 53.4 % (36.0-66.0); Platelet Count 187 x10^3/uL (150-450); Red Blood Count 4.43 x10^6/uL (4.1-5.6); Red Cell Distribution Width 13.2 % (11.5-14.0); White Blood Count 4.9 x10^3/uL (4.0-10.5)
[2023-02-24 22:04] VITALS: TEMP 98
[2023-02-24 22:09] LABS: ALBUMIN 4.6 g/dL (3.5-5.0); ANION GAP 11.2 MEQ/L (5-15); BILIRUBIN,TOTAL 0.6 mg/dL (0.2-1.3); Calcium 9.4 mg/dL (8.4-10.2); Creatinine 1 0.8 mg/dL (0.66-1.25); EST GLOMERULAR FILTRATION RATE 91.2 ML/MIN; Potassium 4.1 mmol/L (3.5-5.1); Total Protein 7.4 g/dL (6.3-8.2)
--- NOTE | 2023-02-24 22:40 | ERPHSYRPT ---
- History of Present Illness Time Seen by Provider: 02/24/23 21:41 Source: patient Exam Limitations: no limitations Patient Subjective Stated Complaint: pt states that for the last 2 days intermittently when he wipes there is bright red blood on the toilet paper. has a known history of hemorrhoids with removal of some in the past per Dr Ponce. pt states there are hemorrhoids currently outside of rectum. Triage Nursing Assessment: pt brought to room 5 via wheelchair and independently got from wheelchair to ED cot with use of cane. pt is alert and oriented times three, but repeatedly talks about his [employer] service instead of answering medi yvonne questions. pt unable to verbalize his medical/ surgical/ medication history. pt is able to move all extremities, able to speak in complete sentences, and with resp even and unlabored. abdomen soft, nontender to palpation, and with positive bowel sounds in all quadrants. pt states he deals with constipation and his LBM was yesterday and firm and 6 inches in length. flatus positive. no active bleeding noted at rectum, dried maroon smears noted to attends. pt denies n/v abdominal pain, lightheadedness, dizziness, HOOKER, diarrhea, SOB, difficulty breathing, cp, or difficulty with urination. denies change to appetite. Physician History: 77-year-old male with history of coronary artery disease with multiple stenting, hypertension, diabetes mellitus presented in the ER with chief complaint of rectal bleed. Patient reports has history of hemorrhoids and hemorrhoidectomy few years ago and for the last couple of days having off-and-on small amount of blood bright red with bowel movement. Denies any abdominal pain, feeling dizzy lightheaded, chest pain palpitations or difficulty breathing. Patient does take Eliquis. Last episode of rectal bleed was couple of hours ago. No hematuria. Blood is not mixed with stool and usually before or after the bowel movement. Has not taken his dose of Eliquis today. Patient does see Dr. Phelan for hemorrhoid issues. Allergies/Adverse Reactions: No Known Drug Allergies Allergy (Verified 02/24/23 21:33) Home Medications: Allopurinol 300 mg [Zyloprim 300 mg] 150 mg PO DAILY 04/22/22 [History] Apixaban [Eliquis 5 mg Tablet] 5 mg PO BID 04/22/22 [History] Ascorbic Acid [Vitamin C] 1,000 mg PO DAILY 04/22/22 [History] Atorvastatin Calcium 40 mg PO HS 04/22/22 [History] Docusate Sodium 100 mg [Docusate Sodium 100 MG] 100 mg PO HS 04/22/22 [ History] Donepezil HCl 10 mg [Aricept 10 MG] 20 mg PO HS 04/22/22 [History] Duloxetine HCl 30 mg [Cymbalta 30 MG Capsule] 30 mg PO BID 04/22/22 [History] Glipizide 5 mg [Glucotrol 5 MG] 5 mg PO BIDWM 04/22/22 [History] Losartan Potassium 100 mg PO HS 04/22/22 [History] Memantine HCl 10 mg PO HS 04/22/22 [History] Metformin HCl 500 mg [Glucophage 500 MG] 1,000 mg PO BIDWM 04/22/22 [History] Metoprolol Succinate 50 mg [Toprol Xl 50 MG] 50 mg PO BID 04/22/22 [History] Mv-Min/Folic/K1/Lycopen/Lutein [Centrum Silver Men Tablet] 1 each PO DAILY 04/22/22 [History] Ropinirole HCl 0.5 mg [Requip 0.5 MG] 0.5 mg PO HS 04/22/22 [History] Vit A/Vit C/Vit E/Zinc/Copper [Preservision Areds Softgel] 1 each PO HS 04/22/22 [History] Calcium Carbonate [Calcium] 600 mg PO HS 02/24/23 [History] Cetirizine HCl 10 mg PO DAILY 02/24/23 [History] Cholecalciferol (Vitamin D3) [Vitamin D] 1,000 unit PO HS 02/24/23 [History] Exenatide Microspheres [Bydureon Bcise] 4 mg SQ UD 02/24/23 [History] Nitroglycerin 0.4 mg Tablet [Nitrostat 0.4 MG Tablet] 0.4 mg SL Q5MIN PRN MR X 3 PRN 02/24/23 [History] Solifenacin Succinate [Vesicare] 5 mg PO HS 02/24/23 [History] Hx Tetanus, Diphtheria Vaccination/Date Given: Yes Hx Influenza Vaccination/Date Given: Yes Hx Pneumococcal Vaccination/Date Given: No Immunizations Up to Date: Yes Travel Risk - International Travel Have you traveled outside of the country in past 3 weeks: No - Coronavirus Screening Are you exhibiting any of the following symptoms?: No Close contact with a COVID-19 positive Pt in past 14-21 Days: No - Vaccine Status Have you recieved a Covid-19 vaccination: Yes [employer]: [email or web address] - Vaccination Dates Date of 2cond Vaccination (if applicable): 07/28/2020 - Review of Systems Constitutional: No Symptoms Ears, Nose, & Throat: No Symptoms Respiratory: No Symptoms Cardiac: No Symptoms Abdominal/Gastrointestinal: Hematochezia Genitourinary Symptoms: No Symptoms Musculoskeletal: No Symptoms Skin: No Symptoms Neurological: No Symptoms Endocrine: No Symptoms Hematologic/Lymphatic: Easy Bleeding Immunological/Allergic: No Symptoms - Past Medical History Pertinent Past Medical History: Yes Neurological History: No Pertinent History ENT History: No Pertinent History Cardiac History: Hypertension, Myocardial Infarction ([place]) Respiratory History: No Pertinent History Endocrine Medical History: Diabetes Type II Musculoskeletal History: No Pertinent History GI Medical History: GI Bleed History: No Pertinent History Psycho-Social History: Depression Male Reproductive Disorders: Prostate Problems - Past Surgical History Past Surgical History: Yes Neuro Surgical History: No Pertinent History Cardiac: No Pertinent History, Cardiac Catheterization, Cardiac Stent Respiratory: No Pertinent History Gastrointestinal: Rectal Surgery, Other Genitourinary: Other Musculoskeletal: Amputation Male Surgical History: No Pertinent History Other Surgical History: right 2nd toe amputation, hemorrhoidectomy, 2 prostate surgeries, heart stent x4, pointer finger/ thumb surgery - Social History Smoking Status: Former smoker Exposure to second hand smoke: No Drug Use: none Patient Lives Alone: No - Nursing Vital Signs Nursing Vital Signs: Initial Vital Signs Temperature 98.0 F 02/24/23 21:33 Pulse Rate 66 02/24/23 21:33 Respiratory Rate 18 02/24/23 21:33 O2 Sat by Pulse Oximetry 97 02/24/23 21:33 Pain Scale Pain Intensity 0 - Physical Exam General Appearance: no apparent distress, alert Eye Exam: PERRL/EOMI Ears, Nose, Throat Exam: normal ENT inspection Neck Exam: normal inspection, non-tender, supple, full range of motion Respiratory Exam: normal breath sounds, lungs clear Cardiovascular Exam: regular rate/rhythm, normal heart sounds Gastrointestinal/Abdomen Exam: soft, normal bowel sounds, No tenderness Rectal Exam: hemorrhoids (No active oozing or spurting. Minimal abrasion at 3 o'clock position.), other (No active bleeding), No decreased tone Extremity Exam: normal inspection Neurologic Exam: alert, oriented x 3, cooperative, cementer machine II-XII nml as tested Skin Exam: normal color SpO2 Interpretation: normal SpO2: 97 O2 Delivery: Room Air Lab/Rad Data: Laboratory Result Diagrams 02/24/23 22:01 02/24/23 22:01 Laboratory Results 02/24/23 02/24/23 Range/Units 22:01 22:01 WBC 4.9 (4.0-10.5) x10^3/uL RBC 4.43 (4.1-5.6) x10^6/uL Hgb 13.9 (12.5-18.0) g/dL Hct 42.0 (42-50) % MCV 94.8 (78-100) fL MCH 31.4 (26-32) pg MCHC 33.1 (32-36) g/dL RDW 13.2 (11.5-14.0) % Plt Count 187 (150-450) x10^3/uL MPV 10.2 (7.5-11.0) fL Gran % 53.4 (36.0-66.0) % Immature Gran % (Auto) 0.2 (0.00-0.4) % Nucleat RBC Rel Count 0.0 (0.00-0.1) % Eos # (Auto) 0.16 (0-0.5) x10^3/uL Immature Gran # (Auto) 0.01 (0.00-0.03) x10^3u/L Absolute Lymphs (auto) 1.54 (1.0-4.6) x10^3/uL Absolute Monos (auto) 0.53 (0.0-1.3) x10^3/uL Absolute Nucleated RBC 0.00 (0.00-0.01) x10^3u/L Lymphocytes % 31.5 (24.0-44.0) % Monocytes % 10.8 (0.0-12.0) % Eosinophils % 3.3 (0.00-5.0) % Basophils % 0.8 (0.0-0.4) % Absolute Granulocytes 2.61 (1.4-6.9) x10^3/uL Basophils # 0.04 (0-0.4) x10^3/uL Sodium 137 (137-145) mmol/L Potassium 4.1 (3.5-5.1) mmol/L Chloride 100 (98-107) mmol/L Carbon Dioxide 30 (22-30) mmol/L Anion Gap 11.2 (5-15) MEQ/L BUN 15 (9-20) mg/dL Creatinine 0.80 (0.66-1.25) mg/dL Estimated GFR 91.2 ML/MIN Glucose 111 H (74-106) mg/dL Calcium 9.4 (8.4-10.2) mg/dL Total Bilirubin 0.60 (0.2-1.3) mg/dL AST 33 (17-59) U/L ALT 33 (0-50) U/L Alkaline Phosphatase 116 (38-126) U/L Serum Total Protein 7.4 (6.3-8.2) g/dL Albumin 4.6 (3.5-5.0) g/dL - Progress Progress: improved Progress Note: 02/24/23 22:51 77-year-old with a history of coronary artery disease with multiple stenting, on Eliquis is evaluated in the ER for rectal bleed. Patient has history of constipation and hemorrhoids with hemorrhoidectomy in a long time ago. Patient noticed blood per rectum not mixed with stool and usually before or after the bowel movement. No dizziness or lightheadedness. No abdominal pain/tenderness. Patient has no chest pain palpitation, lightheadedness. Rectal exam did not show any active bleeding. No blood in the rectal vault. I believe patient has some abrasion due to hard stool as patient has chronic constipation. H&H is stable. He is advised to take stool softener and outpatient follow-up with general surgery. Discussed signs symptoms of worsening needing return to ER which she seems understanding. Stable for discharge. 02/24/23 22:54 Counseled pt/family regarding: lab results, diagnosis, need for follow-up Medical Desision Making - Independent Historian Additional History obtained from: Spouse - Diagnostic Testing Diagnostic test were ordered, analyzed, and reviewed by me: Yes - Departure Departure Disposition: Home Clinical Impression: Bleeding hemorrhoids Condition: Stable Critical Care Time: No Referrals: TIFFANIE HOPKINS [Primary Care Provider] - Follow up with PCP 2 days REI PHELAN [COURTESY STAFF] - Follow up/PCP as directed (In 2 days for reevaluation.) Instructions: Hemorrhoids (DC), Gastrointestinal Bleeding (DC) Additional Instructions: Use MiraLAX/stool softener regularly. Follow-up with general surgery for reevaluation. Return to ER for worsening bleeding or if having abdominal pain, feeling dizzy lightheaded, chest pain palpitations or shortness of breath etc.
[2023-02-24 23:02] VITALS: BP 145/76; PULSE 88; RESP 18
[2023-02-26 01:29] VITALS: O2SAT 97
== END 2023-02-24 23:14 | disposition home or self-care (01) ==
LOC: ED 21:26
DX: K64.9 Unspecified hemorrhoids (principal); I10 Essential (primary) hypertension; E11.9 Type 2 diabetes mellitus without complications; Z79.01 Long term (current) use of anticoagulants; Z79.84 Long term (current) use of oral hypoglycemic drugs; Z79.899 Other long term (current) drug therapy
CPT/HCPCS: 36000; 36415; 80053; 85025; 99283

== ENCOUNTER 2024-02-25 10:53 | Emergency (ER) | payer MEDICARE ==
--- NOTE | 2024-02-25 11:17 | ERPHSYRPT ---
- History of Present Illness Time Seen by Provider: 02/25/24 11:11 Source: patient Exam Limitations: no limitations Physician History: 78-year-old male presents to our ED from [facility] for a wellness check as per his grandson's request. Patient was at the care home. Blood glucose there was observed to be 260. Grandson became concerned and advised patient to come to the ED. However patient just had breakfast and had just received his metformin. Upon arrival to our ED patient had no complaints. Vitals were normal. Blood glucose was 162. No indication for further studies. Physical exam was nonremarkable. Patient states he felt well and wanted to go back to the care home. No chest pain or shortness of breath. No nausea vomiting or diaphoresis. No fever no rash. No diarrhea. Portions of this note were created with voice recognition technology. There may be grammatical, spelling, punctuation or sound alike errors Timing/Duration: today Severity: mild Associated Symptoms: vomiting Allergies/Adverse Reactions: No Known Drug Allergies Allergy (Verified 02/24/23 21:33) Home Medications: Allopurinol 300 mg [Zyloprim 300 mg] 150 mg PO DAILY 04/22/22 [History] Apixaban [Eliquis 5 mg Tablet] 5 mg PO BID 04/22/22 [History] Ascorbic Acid [Vitamin C] 1,000 mg PO DAILY 04/22/22 [History] Atorvastatin Calcium 40 mg PO HS 04/22/22 [History] Docusate Sodium 100 mg [Docusate Sodium 100 MG] 100 mg PO HS 04/22/22 [History] Donepezil HCl 10 mg [Aricept 10 MG] 20 mg PO HS 04/22/22 [History] Duloxetine HCl 30 mg [Cymbalta 30 MG Capsule] 30 mg PO BID 04/22/22 [History] Glipizide 5 mg [Glucotrol 5 MG] 5 mg PO BIDWM 04/22/22 [History] Losartan Potassium 100 mg PO HS 04/22/22 [History] Memantine HCl 10 mg PO HS 04/22/22 [History] Metformin HCl 500 mg [Glucophage 500 MG] 1,000 mg PO BIDWM 04/22/22 [History] Metoprolol Succinate 50 mg [Toprol Xl 50 MG] 50 mg PO BID 04/22/22 [History] Mv-Min/Folic/K1/Lycopen/Lutein [Centrum Silver Men Tablet] 1 each PO DAILY 04/22/22 [History] Ropinirole HCl 0.5 mg [Requip 0.5 MG] 0.5 mg PO HS 04/22/22 [History] Vit A/Vit C/Vit E/Zinc/Copper [Preservision Areds Softgel] 1 each PO HS 04/22/22 [History] Calcium Carbonate [Calcium] 600 mg PO HS 02/24/23 [History] Cetirizine HCl 10 mg PO DAILY 02/24/23 [History] Cholecalciferol (Vitamin D3) [Vitamin D] 1,000 unit PO HS 02/24/23 [History] Exenatide Microspheres [Bydureon Bcise] 4 mg SQ UD 02/24/23 [History] Nitroglycerin 0.4 mg Tablet [Nitrostat 0.4 MG Tablet] 0.4 mg SL Q5MIN PRN MR X 3 PRN 02/24/23 [History] Solifenacin Succinate [Vesicare] 5 mg PO HS 02/24/23 [History] Hx Tetanus, Diphtheria Vaccination/Date Given: Yes Hx Influenza Vaccination/Date Given: Yes Hx Pneumococcal Vaccination/Date Given: No - Review of Systems Constitutional: No Symptoms, No Fever, No Chills Eyes: No Symptoms Ears, Nose, & Throat: No Symptoms Respiratory: No Symptoms, No Cough, No Dyspnea Cardiac: No Symptoms, No Chest Pain, No Edema, No Syncope Abdominal/Gastrointestinal: No Symptoms, No Abdominal Pain, No Nausea, No Vo miting, No Diarrhea Genitourinary Symptoms: No Symptoms, No Dysuria Musculoskeletal: No Back Pain, No Neck Pain Skin: No Symptoms, No Rash Neurological: No Symptoms, No Dizziness, No Focal Weakness, No Sensory Changes Psychological: No Symptoms Endocrine: No Symptoms Hematologic/Lymphatic: No Symptoms Immunological/Allergic: No Symptoms All Other Systems: Reviewed and Negative - Past Medical History Pertinent Past Medical History: Yes Neurological History: No Pertinent History ENT History: No Pertinent History Cardiac History: Hypertension, Myocardial Infarction ([place]) Respiratory History: No Pertinent History Endocrine Medical History: Diabetes Type II Musculoskeletal History: No Pertinent History GI Medical History: GI Bleed History: No Pertinent History Psycho-Social History: Depression Male Reproductive Disorders: Prostate Problems - Past Surgical History Past Surgical History: Yes Neuro Surgical History: No Pertinent History Cardiac: No Pertinent History, Cardiac Catheterization, Cardiac Stent Respiratory: No Pertinent History Gastrointestinal: Rectal Surgery, Other Genitourinary: Other Musculoskeletal: Amputation Male Surgical History: No Pertinent History Other Surgical History: right 2nd toe amputation, hemorrhoidectomy, 2 prostate surgeries, heart stent x4, pointer finger/ thumb surgery - Social History Smoking Status: Former smoker Exposure to second hand smoke: No Drug Use: none Patient Lives Alone: No - Physical Exam General Appearance: no apparent distress, alert Eye Exam: PERRL/EOMI, eyes nml inspection Ears, Nose, Throat Exam: normal ENT inspection, moist mucous membranes Neck Exam: normal inspection, non-tender, supple, full range of motion Respiratory Exam: normal breath sounds, lungs clear, airway intact, No respiratory distress Cardiovascular Exam: regular rate/rhythm, normal heart sounds, normal peripheral pulses Gastrointestinal/Abdomen Exam: soft, normal bowel sounds, No tenderness, No mass Back Exam: normal inspection, normal range of motion, No CVA tenderness, No vertebral tenderness Extremity Exam: normal inspection, normal range of motion, pelvis stable Neurologic Exam: alert, oriented x 3, cooperative, normal mood/affect, sensation nml, No motor deficits Skin Exam: normal color, warm, dry, No rash Lymphatic Exam: No adenopathy SpO2 Interpretation: normal O2 Delivery: Room Air - Course Nursing assessment & vital signs reviewed: Yes Ordered Tests: Active Orders 24 hr Category Date Time Status POCT GLUCOSE Stat Lab 02/25/24 11:01 Completed Lab/Rad Data: Laboratory Results 02/25/24 Range/Units 11:01 POC Glucometer 162 H (74 to 106) mg/dL - Progress Progress: improved Progress Note: 78-year-old male presents to our ED for evaluation as per his grandson's request. Grandson was concerned with high blood sugar. Glucose at care home was 260. Patient had breakfast and had not taken his metformin at that time. Upon arrival to our ED glucose was 160. Patient asymptomatic. Vitals normal. Patient requesting return to care home. No indication for further workup. Will discharge home. Portions of this note were created with voice recognition technology. There may be grammatical, spelling, punctuation or sound alike errors Complexity of problem addresses moderate acute complicated no critical care time. Complex of data reviewed and analyzed is low. Blood glucose ordered and checked. Risk of complication and or risk of morbidity/mortality of patient management is low. Vitals stable. Plan of care established for shared decision making. No social determinants of health present to impede follow-up. Portions of this note were created with voice recognition technology. There may be grammatical, spelling, punctuation or sound alike errors 02/25/24 11:15 Counseled pt/family regarding: diagnosis, need for follow-up - Departure Departure Disposition: Home Clinical Impression: Well adult health check Condition: Stable Critical Care Time: No Referrals: TIFFANIE HOPKINS [Primary Care Provider] - Follow up/PCP as directed Additional Instructions: Discharge/Care Plan MARLEEN SPARKS was seen on 02/25/24 in the Emergency Room. The patient was counseled regarding Diagnosis,Lab results, Imaging studies, need for follow up and when to return to the Emergency Room. Prescriptions given: Discharge Note I have spoken with the patient and/or caregivers. I have explained the patient's condition, diagnosis and treatment plan based on the information available to me at this time. I have answered the patient's and/or caregiver's questions and addressed any concerns. The patient and/or caregivers have as good understanding of the patient's diagnosis, condition and treatment plan as can be expected at this point. The vital signs have been stable. The patient's condition is stable and appropriate for discharge from the emergency department. The patient will pursue further outpatient evaluation with the primary care physician or other designated or consulting physician as outlined in the discharge instructions. The patient and/or caregivers are agreeable to this plan of care and follow-up instructions have been explained in detail. The patient and/or caregivers have received these instruction. The patient/and or caregivers are aware that any significant change in condition or worsening of symptoms should prompt an immediate return to this or the closest emergency department or call 911.
[2024-02-25 11:24] VITALS: BP 154/91; PULSE 61; RESP 14; TEMP 97.7; O2SAT 96
== END 2024-02-25 11:38 | disposition home or self-care (01) ==
LOC: ED 10:53
DX: Z00.00 Encounter for general adult medical examination without abnormal findings (principal); E11.9 Type 2 diabetes mellitus without complications
CPT/HCPCS: 82947; 99283